=== PATIENT | male | born 1995 | race Caucasian/White ===

== ENCOUNTER 2024-06-24 12:35 | Emergency (ER) | payer BC ==
[~2024-06-24] VITALS: Ht 188 cm; Wt 90.9 kg
[2024-06-24 12:43] VITALS: TEMP 97.8
[2024-06-24] MEDS ORDERED: Ketorolac 15 MG/ML VIAL IV ONE (13:00)
[2024-06-24 13:16] LABS: BASO % 0.5 % (0.0-2.0); EOS # 0.1 K/mm3 (0.0-0.7); EOS % 0.7 % (0.0-4.0); GRAN # 5.8 K/mm3 (1.4-6.5); HEMATOCRIT 40.9 % (42.0-52.0); LYMPH # 1.9 K/mm3 (1.2-3.4); LYMPH % 22.1 % (20.0-51.0); MEAN CELL VOLUME 89 fl (80.0-100.0); MEAN CORPUSCULAR HEMOGLOBIN 30 pg (27-31); MEAN CORPUSCULAR HGB CONC 34 g/dl (33.0-37.0); MONO # 0.7 K/mm3 (0.1-0.6); MONO % 8.5 % (1.7-9.3); PLATELET COUNT 166 K/mm3 (130-400); REDCELL DISTRIBUTION WIDTH-CV 12.9 % (11.5-14.5)
[2024-06-24 13:32] LABS: ALBUMIN 4.4 g/dL (3.5-5.0); BILIRUBIN,TOTAL 0.5 mg/dL (0.2-1.2); CREATININE, serum 0.93 mg/dL (0.72-1.25); POTASSIUM 3.7 mEq/L (3.5-4.5); TOTAL PROTEIN 7.6 g/dl (6.2-8.1)
[2024-06-24 14:20] VITALS: BP 132/69; PULSE 70
== END 2024-06-24 14:20 | disposition home or self-care (01) ==
LOC: COL.ER 12:35
PROVIDERS: Physician Assistant
DX: R51.9 Headache, unspecified (principal); Z86.69 Personal history of other diseases of the nervous system and sense organs
CPT/HCPCS: J0780; J1885